=== PATIENT | female | born 1985 | race Caucasian/White ===

== ENCOUNTER 2022-12-11 17:47 | Emergency (ER) | payer OTHER, SELFPAY ==
[2022-12-11 18:14] VITALS: BP 146/70; PULSE 71; RESP 16; TEMP 36.6; O2SAT 98; BMI 22.8
[2022-12-11 20:24] VITALS: BP 115/76; PULSE 61; RESP 16; O2SAT 97
--- NOTE | 2022-12-11 20:24 | ED.RECABL ---
HPI - Recheck/Abnormal Lab/Rx General Chief Complaint: Recheck/Abnormal Lab/Rx Stated Complaint: sent because baby spit up blood Time Seen by Provider: 12/11/22 19:27 Source: patient Mode of arrival: Ambulatory History of Present Illness HPI narrative: 37-year-old female nonsmoker with noncontributory medical history presents at the request of temperature paramedics and her doctor for evaluation. She is a new mother and delivered about 3 weeks ago. She has no complaints but noticed after earlier today that her baby spit up some bloody emesis 1 time. In the aftermath her child was able to breastfeed without difficulty vomiting. She was told that she should be evaluated herself for possible with her any pain but does state that her breasts become full and tender until she breastfeeds or pumps at which point they feel better. She denies any redness or swelling, she denies any nipple drainage. She states that she had recently added dairy back to her diet Review of Systems Review of Systems Narrative: GENERAL: Denies chills, fatigue, malaise, fever, sweats. HEENT: Denies sinus pain, ear pain, sore throat, difficulty swallowing, dizziness. RESPIRATORY: Denies dyspnea, cough, wheezing, hemoptysis, sputum. CARDIOVASCULAR: Denies chest pain, palpitations, orthopnea, edema, GASTROINTESTINAL: Denies nausea, vomiting, abdominal pain, diarrhea, constipation, melena. : Denies dysuria, frequency, incontinence, hematuria, urinary retention. MUSCULOSKELETAL: denies weakness, joint pain, or bony pain SKIN: Denies rash, skin lesions, or other NEUROLOGIC: Denies weakness, headache, numbness, change in speech, confusion, seizures, incoordination. PSYCHIATRIC: No concerning psychosocial issues. 12 point review of systems is negative except for those stated above Patient History Social History Smoking Status: Never smoker Smoking Status: Never smoker Substance Use Type: does not use Exam Narrative Exam Narrative: GENERAL: [37] year old patient appears stated age. Well-developed patient, in mild distress. HEAD: Atraumatic. Normocephalic. EYES: Pupils equal round and reactive. Extraocular motions intact. No scleral icterus. No injection or drainage. ENT: Nose without bleeding, purulent drainage. Throat without erythema, tonsillar hypertrophy or exudate. Airway patent. NECK: Trachea midline. Non tender CARDIOVASCULAR: Regular rate and rhythm without murmurs, gallops, or rubs. BREAST: breast full, but non tender. NO erythema, induration or fluctuance. NO nipple discharge or evidence of bleeding. RESPIRATORY: Clear to auscultation. Breath sounds equal bilaterally. No wheezes, rales, or rhonchi. GASTROINTESTINAL: Abdomen soft, non-tender, nondistended. EXTREMITIES: No edema or joint tenderness. BACK: Nontender without deformity or crepitance. No flank tenderness. NEURO: AOx3. SKIN: No rash or erythema of visible areas Initial Vital Signs Initial Vital Signs: Vital Signs Temperature 97.8 F 12/11/22 18:14 Pulse Rate 71 12/11/22 18:14 Respiratory Rate 16 12/11/22 18:14 Blood Pressure 146/70 H 12/11/22 18:14 Pulse Oximetry 98 12/11/22 18:14 Oxygen Delivery Method 12/11/22 18:14 Course Vital Signs Vital signs: Vital Signs - 8 hr 12/11/22 20:24 Pulse Rate 61 Respiratory Rate 16 Blood Pressure 115/76 Pulse Oximetry 97 Oxygen Delivery Method Room Air MDM - Recheck/Abnormal Lab/Rx MDM Narrative Medical decision making narrative: [37-year-old female presents for evaluation after breast-feeding baby spit up some blood however patient has no complaints] Multiple etiologies for patient's symptoms considered including, but not limited to: [Possible dairy intolerance, mastitis, abscess versus other Prior Charts reviewed:none available Patient 3 weeks removed from successful delivery of 1st child, she is been actively breast-feeding without difficulty, recently at a dairy back to her diet, child had 1 episode of spots of what appeared to be blood in emesis earlier today but had subsequently fed without difficulty. Patient's history and exam reassuring, no evidence of bleeding, infection or other abnormality. No indication for further evaluation, encouraged to follow closely with her primary care provider Findings and discharge diagnosis discussed with patient/family followed by verbalization of understanding Return precautions discussed with patient/family whom verbalize understanding of diagnosis and plan Discharge Plan Departure Patient Disposition: Home Clinical Impression: Feared complaint without diagnosis Instructions: DI for Breast Pain (Mastalgia) Activity Restrictions/Additional Instructions: *You have been diagnosed with [very reassuring exam without evidence of mastitis, infection or other abnormality] *What to do: *Please continue to take your regular medications as directed. *Please follow up with your primary care provider in 2-3 days, call for an appointment. Let them know you were seen in the Emergency Department and that we ask that you be seen in follow up. We will electronically transmit a record of today's note if your PCP is in our system *If you do not have a primary care provider please contact the [facility] Resource line at [phone]. They will ask some questions about your medical history and help get you set up with a doctor in the community. *Return to Emergency Department if you should have any new, worsening or concerning symptoms, such as [fever greater than 101 F, shaking chills, worsening pain, persistent vomiting or other bothersome symptoms] Referrals: Greta Feldman [Primary Care Provider] - Stand Alone Forms: Patient Portal/API
== END 2022-12-11 20:27 | disposition home or self-care (01) ==
PROVIDERS: Emergency Provider Emergency Medicine
DX: N64.4 Mastodynia (principal)
CPT/HCPCS: 99281

== ENCOUNTER → 2025-09-17 09:04 | Outpatient (CLI) | payer OTHER, SELFPAY ==
[2025-09-17 17:31] LABS: Urine N gonorrhoeae NOT DETECTED
[2025-09-17 17:33] LABS: Urine Chlamydia NOT DETECTED
== END ==
LOC: LAB 09:05
PROVIDERS: PCP Registered Nurse Diabetes Educator; Visit Provider Obstetrics & Gynecology
DX: Z34.80 Encounter for supervision of other normal pregnancy, unspecified trimester (principal); Z3A.08 8 weeks gestation of pregnancy
CPT/HCPCS: 87491; 87591

== ENCOUNTER → 2025-09-28 11:08 | Outpatient (CLI) | payer OTHER, SELFPAY ==
[2025-09-28 12:04] LABS: Add Manual Diff / Slide Review NO; Hematocrit 38.0 % (36-46); Hemoglobin 13.3 g/dL (12.0-16.0); Lymphocytes Absolute Auto 2000 /uL (1100-4500); Mean Corpuscular HGB Conc 34.9 % (30-36); Mean Corpuscular Hemoglobin 31.0 PG (26-34); Mean Corpuscular Volume 89.0 fL (80-100); Platelet Count 189 X10^3/uL (150-400)
[2025-09-28 12:25] LABS: Natera Collection Specimen Collected
[2025-09-28 12:30] LABS: Alanine Aminotransferase 18 IU/L (<35); Blood Urea Nitrogen 11 mg/dL (7-17); Estimated Glomerular Filt Rate > 60 mL/min (>60); Uric Acid 1.6 mg/dL (2.5-6.2)
[2025-09-28 15:27] LABS: Hepatitis B Surface Antigen NEGATIVE s/c (NEGATIVE)
[2025-09-28 15:40] LABS: HIV 1 & 2 Ab/Ag 4th Gen Combo NEGATIVE (NEGATIVE); Hep C Virus Ab w/Reflex Quant NEGATIVE s/c (NEGATIVE)
== END ==
PROVIDERS: PCP Registered Nurse Diabetes Educator; Referring Provider Obstetrics & Gynecology; Visit Provider Obstetrics & Gynecology
DX: O09.511 Supervision of elderly primigravida, first trimester (principal); Z87.59 Personal history of other complications of pregnancy, childbirth and the puerperium
CPT/HCPCS: 36415; 80055; 82565; 84450; 84460; 84520; 84550; 86787; 86803; 86850; 86900; 86901; 87086; 87389